=== PATIENT | female | born 1955 | race Caucasian/White ===

== ENCOUNTER 2016-07-30 08:50 | Emergency (ER) | payer OTHER, MEDICAID ==
[2016-07-30] MEDS ORDERED: CEFTRIAXONE 1 GM VIAL ONE (12:24)
[2016-07-30] MEDS ORDERED: SODIUM CHLORIDE 0.9% 1,000 ML ONE (12:25)
[2016-07-30] MEDS ORDERED: KETOROLAC 60 MG/2 ML VIAL IM ONE (12:25)
== END 2016-07-30 14:12 | disposition home or self-care (01) ==
LOC: ER 08:50
DX: N10 Acute pyelonephritis (principal); S22.42XA Multiple fractures of ribs, left side, initial encounter for closed fracture; W01.0XXA Fall on same level from slipping, tripping and stumbling without subsequent striking against object, initial encounter
CPT/HCPCS: 36415; 71020; 80053; 81001; 83605; 84145; 85025; 87040; 87077; 87088; 87186; 96361; 96365; 96375; 99283; J0696